=== PATIENT | male | born 1965 | race Caucasian/White ===

== ENCOUNTER 2023-07-14 10:55 | Emergency (ER) | payer OTHER, SELFPAY ==
[2023-07-14] VITALS (13 sets, daily range): BP systolic 130–149; BP diastolic 80–88; PULSE 60–69; TEMP 36.7; O2SAT 93–98; BMI 40.0
--- NOTE | 2023-07-14 11:04 | ED_ITS ---
HPI - Chest Pain General Time Seen by Provider: 11:22 Date Seen: 07/14/23 Chief Complaint: Chest Pain Stated Complaint: chest pain Time Seen by Provider: 07/14/23 11:04 Source: patient, EMS, RN notes reviewed and old records reviewed Mode of arrival: EMS Limitations: no limitations History of Present Illness HPI narrative: Patient is a very pleasant 57-year-old male with history of bradycardia status post pacemaker placement, history of congestive heart failure improved after significant weight loss, history of asthma and currently at the end of a COVID infection who is brought to the emergency room via EMS for evaluation regarding chest pain. Patient notes the onset of a fever once again last evening in association with some midsternal chest discomfort, no radiation, no vomiting or nausea. Today the discomfort is now associated with some loose stools that are nonbloody in nature. Patient notes the onset of COVID symptoms on July 04. He was unable to take Paxlovid and thus has been on 50 mg of prednisone over the last 3 days. He notes no shortness of breath but intermittent fevers. Fevers have been low grade according to him. Sore throat initially present is improved. Denies shortness of breath today. No past history of [place]. Nonsmoker. Related Data Allergies Allergy/AdvReac Type Severity Reaction Status Date / Time No Known Drug Allergies Allergy Verified 07/14/23 10:59 Review of Systems Status of ROS Reports: 10 or more systems reviewed and unremarkable except as noted in History and below Const Reports: fever (Low-grade), chills and change in weight (Purposeful 80 lb weight loss.) ENMT Reports: throat pain (Improved) and dry mouth; Denies: throat swelling, difficulty swallowing or hoarseness Cardio Reports: chest pain and lightheadedness; Denies: edema, swelling of feet/ankles or shortness of breath with exertion Resp Reports: cough (Mild) and pain on inspiration (Slightly); Denies: shortness of breath, wheezing or stridor GI Reports: diarrhea; Denies: abdominal pain, nausea, vomiting or difficulty swallowing Denies: painful urination Musculo Denies: back pain Integ/Breast Denies: rash Neuro Denies: headache or numbness in extremities Allergy/Immuno Denies: throat swelling or wheezing PFSH PFSH Social History Smoking Status: Never smoker Do you use any of these nicotine containing products: Smokeless Tobacco Second hand tobacco smoke exposure: No How often do you have a drink containing alcohol: 2-3 times a week How often do you have six or more drinks on one occasion: Never AUDIT-C Alcohol total score: 3 Non-prescribed substance use: denies use service: No Exam Narrative Exam Narrative: Very pleasant gentleman in no acute distress. Alert and oriented. Eyes are clear. Oral cavity with moist mucous membranes and no significant erythema/edema of the posterior oropharynx. Neck is supple without lymphadenopathy. Heart with a regular rate and rhythm. No additional heart sounds or murmurs noted. Lungs are clear in all [place]. Abdomen soft nontender. No pain with palpation right upper quadrant. Lower extremities without edema. No calf tenderness. No evidence of erythema. Const Vital Signs, click to edit/add: Vital Signs - 24 hr 07/14/23 11:00 07/14/23 11:36 07/14/23 11:45 Temperature 98.1 F Pulse Rate 60 60 Pulse Rate [Pulse Oximeter] 66 Blood Pressure Blood Pressure [Left Upper Arm] 149/88 H Pulse Oximetry 96 96 96 Oxygen Delivery Method Room Air 07/14/23 12:00 07/14/23 12:05 07/14/23 12:15 Temperature Pulse Rate 61 60 60 Pulse Rate [Pulse Oximeter] Blood Pressure Blood Pressure [Left Upper Arm] Pulse Oximetry 96 94 96 Oxygen Delivery Method 07/14/23 12:30 07/14/23 12:34 07/14/23 12:45 Temperature Pulse Rate 60 60 66 Pulse Rate [Pulse Oximeter] Blood Pressure Blood Pressure [Left Upper Arm] Pulse Oximetry 95 95 98 Oxygen Delivery Method 07/14/23 13:00 07/14/23 13:02 07/14/23 13:03 Temperature Pulse Rate 60 60 60 Pulse Rate [Pulse Oximeter] Blood Pressure 130/80 Blood Pressure [Left Upper Arm] Pulse Oximetry 93 95 94 Oxygen Delivery Method 07/14/23 13:57 Temperature Pulse Rate 69 Pulse Rate [Pulse Oximeter] Blood Pressure Blood Pressure [Left Upper Arm] Pulse Oximetry 93 Oxygen Delivery Method Documenting provider has reviewed patient's vital signs: yes Course Course ED Course: At this time differential diagnosis does include but is not limited to angina, acute coronary syndrome, PE, viral myocarditis, pericarditis, anxiety, muscu loskeletal discomfort. Recommend CBC, comprehensive, CRP, troponin, EKG, proBNP, D-dimer at this time. Plan on rule out chest pain protocol. Reevaluation(s) Reevaluation #1: Patient's initial troponin negative. Patient is receptive to a trial of Toradol while awaiting 2nd troponin. D-dimer is elevated slightly. Will discuss with patient option for CT of the chest. Reevaluation #2: Patient notes some [id number] improvement of his symptoms after Toradol. Vital Signs Vital signs: Initial Vital Signs Temperature 98.1 F 07/14/23 11:00 Temperature Source Temporal Artery Scan 07/14/23 11:00 Pulse Rate 66 07/14/23 11:00 Blood Pressure 149/88 H 07/14/23 11:00 Blood Pressure Mean 108 H 07/14/23 11:00 Blood Pressure Position Semi-Fowlers 07/14/23 11:00 Pulse Oximetry 96 07/14/23 11:00 Oxygen Delivery Method Room Air 07/14/23 11:00 Vital Signs Temperature 98.1 F 07/14/23 11:00 Pulse Rate 66 07/14/23 11:00 Blood Pressure 149/88 H 07/14/23 11:00 Pulse Oximetry 96 07/14/23 11:00 Oxygen Delivery Method Room Air 07/14/23 11:00 Temperature 98.1 F 07/14/23 11:00 Pulse Rate 69 07/14/23 13:57 Blood Pressure 130/80 07/14/23 13:02 Pulse Oximetry 93 07/14/23 13:57 Oxygen Delivery Method Room Air 07/14/23 11:00 Medications Administered Medications: Discontinued Medications Generic Name Dose Route Start Last Admin Trade Name Freq PRN Reason Stop Dose Admin Ketorolac Tromethamine 15 mg 07/14/23 12:42 07/14/23 13:00 Ketorolac 15 Mg/Ml Inj IVP 07/14/23 12:43 15 mg ONCE ONE Administration MDM - Chest Pain MDM Narrative Medical decision making narrative: 1. Atypical chest pain-patient is negative for PE, pneumonia. Toradol has modestly helped discomfort. Will discharge patient home at this time. 2. COVID-no evidence of pneumonia. Oxygen saturations are reassuring. Would recommend deep breathing and coughing exercises. Patient will continue his current prednisone dosing. 3. Disposition-home at this time. Return for worsening symptoms. Medical Records Data Attestation: I reviewed the patient's medical records. Lab Data Attestation: I reviewed the patient's lab results. Labs: Lab Results 07/14/23 07/14/23 07/14/23 Range/Units 11:18 11:36 13:15 WBC 7.39 (4.50-11.00) K/uL RBC 4.66 (4.30-5.90) m/uL Hgb 13.9 (13.5-17.5) gm/dL Hct 41.1 (37.0-53.0) % MCV 88 (80-100) fL MCH 30 (26-34) pg MCHC 34 (32-36) gm/dL RDW Coeff of Courtney 12.3 (11.5-15.5) % Plt Count 178 (140-440) K/uL Neut % (Auto) 86.7 H (42.0-72.0) % Lymph % (Auto) 9.3 L (20-44) % [place] % (Auto) 3.5 (0.0-11.0) % Eos % (Auto) 0.1 (0.0-7.0) % Baso % (Auto) 0.0 (0.0-3.0) % Neut # (Auto) 6.40 (1.7-7.0) K/uL Lymph # (Auto) 0.70 L (0.90-2.90) K/uL [place] # (Auto) 0.30 (0.00-0.90) K/UL Eos # (Auto) 0.01 (0.00-0.50) K/uL Baso # (Auto) 0.00 (0.00-0.30) K/uL Abs Immat Gran (auto) 0.03 (0.00-0.30) K/uL Imm/Tot Granulo (auto) 0.4 % D-Dimer Quant (PE/DVT) 0.57 H (0.00-0.50) ug/ml Sodium 139 (135-149) mmol/L Potassium 3.5 L (3.6-5.1) mmol/L Chloride 104 (96-114) mmol/L Carbon Dioxide 28 (20-32) mmol/L Anion Gap 7 (7-15) mEq/L BUN 28 (7-30) mg/dL Creatinine 0.9 (0.5-1.5) mg/dL Estimated Creat Clear 85.50 Estimated GFR 98 ml/min Glucose 128 H (60-115) mg/dL Calcium 9.1 (8.4-10.6) mg/dL Total Bilirubin 0.4 (0.1-1.5) mg/dL AST 31 (12-35) U/L ALT 42 (4-50) U/L Alkaline Phosphatase 98 (40-150) U/L C-Reactive Protein 0.5 (0.5-1.0) mg/dL NT-Pro-B Natriuret Pep 98 pg/mL Total Protein 7.2 (6.0-8.3) g/dL Albumin 4.6 (3.3-5.0) g/dL POC Troponin I 0.01 0.01 (0.01-0.04) ng/ml Imaging Data Chest x-ray: Attestation: I have reviewed the pertinent imaging results. My impression: No obvious abnormalities Radiologist's impression: Lung volumes are good. No focal consolidations. No pulmonary edema. No pleural effusion. No pneumothorax. No pneumomediastinum. Cardiomegaly. Dual lead transvenous pacemaker from left subclavian approach with leads in good position. Bones: Lower cervical ACDF CT scan - chest: Attestation: I have reviewed the pertinent imaging results. My impression: By my read I did not note any evidence of PE Radiologist's impression: Pulmonary Arteries: No CT evidence of pulmonary thromboembolic disease. No pulmonary hypertension or right ventricular strain. Heart and Mediastinum: The visualized portions of the thyroid are normal. No axillary or supraclavicular lymphadenopathy. No mediastinal, hilar or retrocrural lymphadenopathy. Normal heart size. Normal caliber aorta. ICD/pacer wires. Trace pericardial fluid. Atherosclerotic calcifications. Lungs and Airways: 3 millimeter triangular-shaped indeterminate nodule abutting the minor fissure in the subpleural space, statistically intrapulmonary lymphoid tissue. No mass or consolidation. No endoluminal lesion. Pleura: The pleural spaces are normal. Abdomen: Incompletely visualized left renal cystic focus extending inferiorly off the field of view. Bones and soft tissues: ACDF. IMPRESSION: 1. No CT evidence of pulmonary thromboembolic disease. 2. No intrathoracic mass or consolidation. ECG Data Attestation: I personally reviewed and interpreted this ECG as follows: ECG interpretation date: 07/14/23 Interpretation: By my read EKG shows a atrial paced rhythm at a rate of 66. Discharge Plan Discharge Clinical Impression: COVID, Atypical chest pain Patient Disposition: Home, Self-Care Condition: Improved Additional Instructions: Ibuprofen or Tylenol as needed for chest discomfort. Seek medical attention for worsening symptoms. Follow Up/Referrals: Abdelrahman Su MD [Primary Care Provider] - Stand Alone Forms: [facility] Info Instructions
--- NOTE | 2023-07-14 11:18 | CRLHL7_ITS ---
For Patients: As a result of the Cures Act, medical imaging exams and procedure reports are released immediately into your electronic medical record. You may view this report before your referring provider. If you have questions, please contact your health care provider. INDICATION: Chest tightness, COVID COMPARISON: None. TECHNIQUE: 1 view chest radiograph. FINDINGS: Lung volumes are good. No focal consolidations. No pulmonary edema. No pleural effusion. No pneumothorax. No pneumomediastinum. Cardiomegaly. Dual lead transvenous pacemaker from left subclavian approach with leads in good position. Bones: Lower cervical ACDF.. IMPRESSION: Lungs clear. Cardiomegaly. Dictated by Destiny Pond MD @ 07/14/2023 12:44:47 PM (Electronically Signed)
[2023-07-14 11:49] LABS: Eosinophils Absolute Auto 0.01 K/uL (0.00-0.50); Eosinophils Percent Auto 0.1 % (0.0-7.0); Hematocrit 41.1 % (37.0-53.0); Hemoglobin* 13.9 gm/dL (13.5-17.5); Immature Granulocytes Abs Auto 0.03 K/uL (0.00-0.30); Immature Granulocytes Pct Auto 0.4 %; Lymphocytes Percent Auto 9.3 % (20-44); Mean Corpuscular HGB Conc 34 gm/dL (32-36); Mean Corpuscular Hemoglobin 30 pg (26-34); Mean Corpuscular Volume 88 fL (80-100); Monocytes Percent Auto 3.5 % (0.0-11.0); Neutrophils Percent Auto 86.7 % (42.0-72.0); Platelet Count* 178 K/uL (140-440); RDW Coefficient of Variation % 12.3 % (11.5-15.5); Red Blood Count 4.66 m/uL (4.30-5.90); White Blood Count* 7.39 K/uL (4.50-11.00)
[2023-07-14 11:51] LABS: Slide Review Reflex No
[2023-07-14 12:01] LABS: Albumin* 4.6 g/dL (3.3-5.0); Chloride* 104 mmol/L (96-114); Sodium* 139 mmol/L (135-149)
[2023-07-14 12:02] LABS: Potassium* 3.5 mmol/L (3.6-5.1)
[2023-07-14 12:04] LABS: Alkaline Phosphatase* 98 U/L (40-150); Anion Gap 7 mEq/L (7-15); Aspartate Amino Transferase* 31 U/L (12-35); Bilirubin Total* 0.4 mg/dL (0.1-1.5); Carbon Dioxide* 28 mmol/L (20-32); Creatinine* 0.9 mg/dL (0.5-1.5); Estimated Glomerular Filt Rate 98 ml/min
[2023-07-14 12:05] LABS: Alanine Aminotransferase* 42 U/L (4-50); Blood Urea Nitrogen* 28 mg/dL (7-30); Calcium* 9.1 mg/dL (8.4-10.6); Glucose* 128 mg/dL (60-115); Total Protein* 7.2 g/dL (6.0-8.3)
[2023-07-14 12:07] LABS: C Reactive Protein* 0.5 mg/dL (0.5-1.0)
[2023-07-14 12:14] LABS: D Dimer Quantitative* 0.57 ug/ml (0.00-0.50)
[2023-07-14 12:18] LABS: Troponin, Point-of-Care* 0.01 ng/ml (0.01-0.04)
[2023-07-14 12:18] LABS: NT Pro B Type NatriureticPept* 98 pg/mL
[2023-07-14] MEDS: KETOROLAC 15 MG/ML inj IVP (13:00)
--- NOTE | 2023-07-14 13:03 | CRLHL7_ITS ---
For Patients: As a result of the Century Cures Act, medical imaging exams and procedure reports are released immediately into your electronic medical record. You may view this report before your referring provider. If you have questions, please contact your health care provider. INDICATION: .HX COVID, SOB, CONFUSION, TIGHTNESS TECHNIQUE: CT chest PE was acquired with 95 cc Isovue 370 IV contrast. COMPARISON: None FINDINGS: Pulmonary Arteries: No CT evidence of pulmonary thromboembolic disease. No pulmonary hypertension or right ventricular strain. Heart and Mediastinum: The visualized portions of the thyroid are normal. No axillary or supraclavicular lymphadenopathy. No mediastinal, hilar or retrocrural lymphadenopathy. Normal heart size. Normal caliber aorta. ICD/pacer wires. Trace pericardial fluid. Atherosclerotic calcifications. Lungs and Airways: 3 millimeter triangular-shaped indeterminate nodule abutting the minor fissure in the subpleural space, statistically intrapulmonary lymphoid tissue. No mass or consolidation. No endoluminal lesion. Pleura: The pleural spaces are normal. Abdomen: Incompletely visualized left renal cystic focus extending inferiorly off the field of view. Bones and soft tissues: ACDF. IMPRESSION: 1. No CT evidence of pulmonary thromboembolic disease. 2. No intrathoracic mass or consolidation. Please note that all CT scans at this facility use dose modulation, iterative reconstruction, and/or weight-based dosing when appropriate to reduce radiation dose to as low as reasonably achievable. Dictated by Emery Lang MD @ 07/14/2023 2:06:25 PM (Electronically Signed)
[2023-07-14 14:49] LABS: Troponin, Point-of-Care* 0.01 ng/ml (0.01-0.04)
== END 2023-07-14 14:57 | disposition home or self-care (01) ==
PROVIDERS: Emergency Provider Family Medicine; PCP Family Medicine
DX: R07.89 Other chest pain (principal); U07.1 COVID-19
CPT/HCPCS: 36415; 71045; 71275; 80053; 83880; 84484; 85025; 85379; 86140; 93005; 99284; 99285; J1885; Q9967